=== PATIENT | female | born 2000 | race Caucasian/White ===

== ENCOUNTER 2020-05-03 07:55 | Inpatient (IN) | payer OTHER ==
[2020-05-03 10:38] VITALS: BMI 37.5
[2020-05-03] MEDS ORDERED: LACTATED RINGERS SOLUTION 1,000 ML IV SCH (11:00)
[2020-05-03 11:54] LABS: BASO % 0.1 % (0-2.0); EOS % 0.1 % (0-4.5); HEMATOCRIT 38.1 % (32.4-45.2); HEMOGLOBIN 12.9 GM/dL (10.7-15.3); LYMPH % 12.5 % (8-40); MCH 28.6 pg (25.7-33.7); MCHC 33.9 g/dl (32.0-36.0); MEAN CELL VOLUME 84.5 fl (80-96); MONO % 5.6 % (3.8-10.2); NEUT % 81.7 % (42.8-82.8); PLATELET COUNT 294 K/MM3 (134-434); RBC 4.51 M/mm3 (3.60-5.2); RDW 18.4 % (11.6-15.6); WHITE BLOOD COUNT 9.7 K/mm3 (4.0-10.0)
[2020-05-03 12:02] LABS: INR 1.07 (0.83-1.09); PROTHROMBIN TIME (PATIENT) 12.9 SEC (9.7-13.0)
[2020-05-03 12:05] LABS: ACTIVATED PTT 29.3 SECONDS (25.2-36.5)
[2020-05-03 12:23] LABS: CALCIUM 9.3 mg/dL (8.5-10.1)
[2020-05-03 12:24] LABS: BLOOD UREA NITROGEN 8.2 mg/dL (7-18)
[2020-05-03] MEDS ORDERED: OXYTOCIN 30 UNITS in 0.9% NS 30 UNIT/500 ML INFUS.BAG IVPB ONE (12:25)
[2020-05-03 12:28] LABS: CREATININE 0.4 mg/dL (0.55-1.3)
[2020-05-03] MEDS ORDERED: OXYTOCIN 30 UNITS in 0.9% NS 30 UNIT/500 ML INFUS.BAG IVPB SCH (12:45)
[2020-05-03] MEDS: ELECTROLYTE-148 SOLN 1,000 ML IV SCH (13:10)
[2020-05-03] MEDS ORDERED: FENTANYL/BUPIVACAINE/NS/PF - PCEA - 50 ML DISP.SYRIN EP ONE ×2 (14:08→18:20)
[2020-05-03] MEDS ORDERED: PCA PUMP NR ONE ×2 (14:09→20:39)
[2020-05-03] MEDS: FENTANYL/BUPIVACAINE/NS/PF - PCEA - 50 ML DISP.SYRIN EP SCH (14:35)
[2020-05-03] MEDS ORDERED: NALOXONE HCL 0.4 MG/ML VIAL IVPUSH PRN (15:17)
[2020-05-03] MEDS ORDERED: LIDOCAINE HCL 1% PRESERVATIVE FREE - 30ML VIAL ONE (20:39)
[2020-05-03] MEDS ORDERED: OXYTOCIN 20 UNITS in 0.9% NS 20 UNIT/1,000 ML INFUS.BAG IV ONE (20:39)
[2020-05-03] MEDS: OXYTOCIN 20 UNITS in 0.9% NS 20 UNIT/1,000 ML INFUS.BAG IV SCH (21:15)
[2020-05-03] MEDS ORDERED: WITCH HAZEL 50% (TUCKS) 40 PAD/JAR PAD TP PRN (21:47)
[2020-05-03] MEDS ORDERED: BENZOCAINE 20% 57 GM BOTTLE TP PRN (21:47)
[2020-05-03] MEDS ORDERED: IBUPROFEN 600 MG TABLET (FP) PO PRN (21:47)
[2020-05-03] MEDS ORDERED: BENZOCAINE 28 GM HEMORRHOIDAL OINTMENT TP PRN (21:47)
[2020-05-03] MEDS ORDERED: BISACODYL 10 MG SUPP.RECT RC PRN (21:47)
[2020-05-03] MEDS ORDERED: METHYLERGONOVINE MALEATE 0.2 MG/1 ML AMP IM PRN (21:47)
[2020-05-04 09:22] LABS: BASO % 0.1 % (0-2.0); HEMATOCRIT 28.3 % (32.4-45.2); HEMOGLOBIN 9.5 GM/dL (10.7-15.3); LYMPH % 10.1 % (8-40); MCH 28.9 pg (25.7-33.7); MCHC 33.7 g/dl (32.0-36.0); MEAN CELL VOLUME 85.5 fl (80-96); MEAN PLT VOLUME 7.9 fl (7.5-11.1); MONO % 6.6 % (3.8-10.2); NEUT % 83.2 % (42.8-82.8); PLATELET COUNT 260 K/MM3 (134-434); RBC 3.31 M/mm3 (3.60-5.2); RDW 18.2 % (11.6-15.6); WHITE BLOOD COUNT 12.8 K/mm3 (4.0-10.0)
[2020-05-04] MEDS: PRENATAL VITAMINS W/ FOLIC ACID TABLET (FP) PO SCH (09:24)
[2020-05-04 13:28] LABS: POC NITRAZINE NEG
[2020-05-04] MEDS: ACETAMINOPHEN 325 MG TABLET (FP) PO PRN ×2 (13:30→21:55)
[2020-05-04] MEDS: FENTANYL/BUPIVACAINE/NS/PF - PCEA - 50 ML DISP.SYRIN EP SCH (20:33)
[2020-05-04] MEDS: ELECTROLYTE-148 SOLN 1,000 ML IV SCH (20:33)
[2020-05-04] MEDS ORDERED: SENNOSIDES/DOCUSATE COMBO (SENNA PLUS) TABLET (UD) PO PRN (22:00)
[2020-05-04] MEDS: OXYTOCIN 20 UNITS in 0.9% NS 20 UNIT/1,000 ML INFUS.BAG IV SCH (22:08)
[2020-05-05] MEDS: PRENATAL VITAMINS W/ FOLIC ACID TABLET (FP) PO SCH (09:17)
[2020-05-05 10:23] VITALS: BP 107/65; PULSE 100; TEMP 98.9
== END 2020-05-05 12:30 | disposition home or self-care (01) | DRG 560 ==
LOC: JDEL 07:55 → JLDR 09:45 → UNDOADMIN 09:45 → JLDR 19:17 → J3W 05-04 01:20
PROVIDERS: ADMIT Obstetrics & Gynecology; ATTEND Obstetrics & Gynecology
PROC: 10E0XZZ Delivery of Products of Conception, External Approach (ICD-10-PCS; principal; 2020-05-03)
PROC: 0HQ9XZZ Repair Perineum Skin, External Approach (ICD-10-PCS; 2020-05-03)
DX: O48.0 Post-term pregnancy (principal); Z3A.41 41 weeks gestation of pregnancy; Z37.0 Single live birth; O62.0 Primary inadequate contractions; O70.1 Second degree perineal laceration during delivery
CPT/HCPCS: 36415; 59409; 80048; 83986-QW; 85025; 85610; 85730; 86780; 86850; 86900; 86901; 87389; C9803; U0003